=== PATIENT | male | born 1960 | race Caucasian/White ===

== ENCOUNTER 2016-10-17 14:30 | Observation (INO) | payer SELFPAY ==
[~2016-10-17] VITALS: Ht 188 cm; Wt 77.0 kg
--- NOTE | 2016-10-17 14:39 | NUR ---
PATIENT TO ROOM VIA EMS PROVIDER AT BEDSIDE FOR EVALUATION
[2016-10-17] MEDS ORDERED: NOVOLIN 70/30 SC ×2 (14:55→14:56)
[2016-10-17 15:07] LABS: HEMATOCRIT 37.9 % (39.0-50.0); HEMOGLOBIN 13.9 g/dl (14.0-18.0); IMMATURE GRANULOCYTES 0.3 % (0.0-1.0); MEAN CORPUSCULAR HGB CONC 36.7 g/L CALC (32.0-36.0); NEUT# 4.32 thou/uL (1.82-7.42); RED BLOOD COUNT 4.21 mill/uL (4.70-6.10); RED CELL DISTRI WIDTH 11.9 % (11.5-15.5)
[2016-10-17 15:16] LABS: ALKALINE PHOSPHATASE 65 u/l (38-126); ANION GAP 19 (6-22 (CALC)); BILIRUBIN, TOTAL 1.3 mg/dL (0.0-1.4); BUN 16 mg/dL (9-20); BUN/CREATININE RATIO 23 (12-20 (CALC)); CALCIUM 9.3 mg/dL (8.4-10.2); CARBON DIOXIDE 19 mmol/l (22-30); CHLORIDE 103 mmol/l (95-108); CREATININE 0.7 mg/dL (0.7-1.3); GFR > 60 ML/MIN (>=60 (CALC)); GFR FOR AFR.AMER. > 60 ML/MIN (>=60 (CALC)); GLUCOSE 113 mg/dL (75-110); POTASSIUM 3.7 mmol/l (3.5-5.1); SGOT/AST 18 u/l (17-59); SGPT/ALT 37 u/l (21-72); SODIUM 137 mmol/l (137-146); TOTAL PROTEIN 6.8 g/dL (6.3-8.2)
--- NOTE | 2016-10-17 15:17 | NUR ---
PT RESTING ON STRETCHER WATCHING TV. RESP EVEN AND UNLABORED. SKIN WARM AND DRY. VSS. PT DENIES PAIN. STATES "FEELS BETTER THAN I DID". CALL LIGHT WITHIN REACH. S/O AT BEDSIDE.
[2016-10-17 15:28] LABS: MYOGLOBIN 22 ng/mL (0 - 121)
[2016-10-17 15:50] LABS: URINE BLOOD DIPSTICK NEGATIVE (NEGATIVE); URINE CLARITY CLEAR; URINE COLOR YELLOW; URINE GLUCOSE - DIPSTICK >=1000 mg/dL (NEGATIVE); URINE KETONE 15 mg/dL (NEGATIVE); URINE LEUK ESTERASE NEGATIVE (NEGATIVE); URINE NITRITE - DIPSTICK NEGATIVE (Negative); URINE PROTEIN - DIPSTICK TRACE mg/dL (NEG-TRACE); URINE SPECIFIC GRAVITY 1.015
[2016-10-17 15:52] LABS: URINE BILIRUBIN - DIPSTICK NEGATIVE (NEGATIVE)
[2016-10-17 15:53] LABS: BARBITURATES NEGATIVE (NEGATIVE); COCAINE NEGATIVE (NEGATIVE); METHADONE NEGATIVE (NEGATIVE); OXCYCODONE NEGATIVE (NEGATIVE); TETRAHYDROCANNABIONOL NEGATIVE (NEGATIVE); TRICYLIC ANTIDEPRESSANTS NEGATIVE (NEGATIVE)
--- NOTE | 2016-10-17 16:25 | NUR ---
PT RESTING ON STRETCHER. RESP EVEN AND UNLABORED. SKIN WARM AND DRY.PT WATCHING TV. FAMILY AT BEDSIDE. PT ASKING TO EAT HIS OWN PRETZELS. CALL LIGHT WITHIN REACH.
[2016-10-17 16:31] LABS: MAGNESIUM 1.8 mg/dL (1.6-2.3)
--- NOTE | 2016-10-17 17:06 | NUR ---
PT RESTING ON STRETCHER EATING PRETZELS TALKING WITH FAMILY. RESP EVEN AND UNALBORED. SKIN WARM AND DRY. PT DENIES DIZZINESS. IV SITE HEALTHY. CALL LIGHT WITHIN REACH. PT STATES NO NEEDS AT THIS TIME.
--- NOTE | 2016-10-17 17:46 | NUR ---
PT RESTING ON STRETCHER. RESP EVEN AND UNLABORED. SKIN WARM AND DRY. PT A&O X3. FAMILY AT BEDSIDE. PT STATES NO NEEDS AT THIS TIME. NS INFUSING. IV SITE HEALTHY. CALL LIGHT WITHIN REACH.
--- NOTE | 2016-10-17 18:00 | NUR ---
POTASSIUM PHOSPHATE IV IS NOT AVAILABLE AT HOSPITAL. NOTIFIED.
--- NOTE | 2016-10-17 18:30 | NUR ---
POTASSIUM PHOSPHATE PO NOT AVAILABLE IN ANY [facility]. SPOKE WITH MELI PHARMACIST WHO STATES DANDRE MILNER WILL COME TO PHARMACY AND SUPPLY MED TO [facility].
--- NOTE | 2016-10-17 18:54 | NUR ---
REPORT GIVEN TO SASHA MAYER
--- NOTE | 2016-10-17 19:16 | NUR ---
Admission Note Report Given to: SASHA MAYER Transported by: X Wheelchair Stretcher Transported with: Nurse X Transporter X Patent IV [place] [place] Comptroller PT IN STABLE CONDITION. IV SITE HEALTHY. BELONINGS WITH PT
[2016-10-17 19:19] VITALS: BP 101/66
--- NOTE | 2016-10-17 19:20 | NUR ---
PT TRANSFERRED TO FLOOR IN STABLE CONDITION VIA WC ACCOMPANIED BY JOSELYN SRINIVASAN;PT AMBULATED WITH STEADY GAIT TO STANDING SCALE;VS OBTAINED;PT ORIENTED TO ROOM AND CALL LIGHT SYSTEM AND VERBALIZES UNDERSTANDING;ASSESSMENT COMPLETED;EMS IV SITE TO LAC FLUSHED AND PATENT;PT REPORTED LAST BM TO BE ON 10/17;PT DENIES ANY PAIN OR DISCOMFORTS AT THIS TIME;URINAL AT BEDSIDE;PT STATES "I FEEL BETTER SINCE I CAME IN";PT DENIES ANY NEEDS;TELE MONITOR IN PLACE;SAFETY PRECAUTIONS REINFORCED;PT EDUCATED TO CALL FOR ASSISTANCE IF NEEDED;BED IN LOWEST POSITION WITH CALL LIGHT IN REACH;WILL CONTINUE TO MONITOR
--- NOTE | 2016-10-18 00:10 | NUR ---
PT APPEARS TO BE SLEEPING IN SEMI FOWLERS POSITION WITH SPOUSE AT BEDSIDE;NO S/S OF DISTRESS NOTED;RESPIRATIONS EVEN AND UNLABORED ON RA;IV FLUIDS INFUSING WELL AT THIS TIME;URINAL AT BEDSIDE;CALL LIGHT WITHIN REACH;WILL CONTINUE TO MONITOR
[2016-10-18 00:20] VITALS: BP 104/64
[2016-10-18 04:10] VITALS: BP 110/72
--- NOTE | 2016-10-18 05:07 | NUR ---
PT RESTING IN SUPINE POSITION WITH SPOUSE AT BEDSIDE;LAB IN ROOM;PT DENIES ANY PAIN OR DISCOMFORTS;RESPIRATIONS EVEN AND UNLABORED ON RA;IV FLUIDS INFUSING WELL TO LAC;PT EDUCATED TO CALL FOR ASSISTANCE IF NEEDED;CALL LIGHT WITHIN REACH;WILL CONTINUE TO MONITOR
[2016-10-18 07:20] LABS: HEMATOCRIT 37.4 % (39.0-50.0); HEMOGLOBIN 12.9 g/dl (14.0-18.0); MEAN CELL VOLUME 93.5 fL CALC (80.0-100.0); MEAN CORPUSCULAR HGB 32.3 pG CALC (26.0-32.0); MEAN CORPUSCULAR HGB CONC 34.5 g/L CALC (32.0-36.0); RED CELL DISTRI WIDTH 11.9 % (11.5-15.5)
[2016-10-18 07:25] LABS: ALKALINE PHOSPHATASE 54 u/l (38-126); ANION GAP 12 (6-22 (CALC)); BILIRUBIN, TOTAL 0.6 mg/dL (0.0-1.4); BUN 14 mg/dL (9-20); BUN/CREATININE RATIO 23 (12-20 (CALC)); CALCIUM 8.3 mg/dL (8.4-10.2); CARBON DIOXIDE 22 mmol/l (22-30); CHLORIDE 107 mmol/l (95-108); CREATININE 0.6 mg/dL (0.7-1.3); GFR > 60 ML/MIN (>=60 (CALC)); GFR FOR AFR.AMER. > 60 ML/MIN (>=60 (CALC)); GLUCOSE 244 mg/dL (75-110); POTASSIUM 4.2 mmol/l (3.5-5.1); SGOT/AST 23 u/l (17-59); SGPT/ALT 34 u/l (21-72); SODIUM 137 mmol/l (137-146); TOTAL PROTEIN 5.6 g/dL (6.3-8.2)
[2016-10-18 11:10] VITALS: BP 118/56
[2016-10-18] MEDS ORDERED: ASPIRIN ADULT L81 M2 PO (12:08)
--- NOTE | 2016-10-18 12:48 | NUR ---
Discharge instructions given. Patient verbalizes understanding of same. Discharged in stable condition via Wheelchair to Home with family. All belongings sent with pt.
== END 2016-10-18 12:55 | disposition home or self-care (01) | DRG 641 ==
LOC: ENPENDDIS → ED 14:30 → ED-I 17:47 → ED 17:50 → MS2 17:51
PROVIDERS: Emergency Medicine; ADMIT Internal Medicine; ATTEND Internal Medicine
DX: E86.0 Dehydration (principal); E86.1 Hypovolemia; E11.649 Type 2 diabetes mellitus with hypoglycemia without coma; I95.9 Hypotension, unspecified; E44.1 Mild protein-calorie malnutrition; E83.39 Other disorders of phosphorus metabolism; Z79.4 Long term (current) use of insulin; Z68.21 Body mass index [BMI] 21.0-21.9, adult
CPT/HCPCS: G0378

== ENCOUNTER 2019-12-28 10:39 | Emergency (ER) | payer SELFPAY ==
[~2019-12-28] VITALS: Ht 188 cm; Wt 90.9 kg
[~2019-12-28 10:39] MED LIST: ASPIRIN ADULT L81 M2 PO; NOVOLIN 70/30 SC
[2019-12-28 11:39] LABS: HEMATOCRIT 44.8 % (39.0-50.0); HEMOGLOBIN 14.8 g/dl (14.0-18.0); IMMATURE GRANULOCYTES 0.3 % (0.0-5.0); MEAN CELL VOLUME 94.7 fL CALC (80.0-100.0); MEAN CORPUSCULAR HGB 31.3 pG CALC (26.0-32.0); NEUT# 7.22 thou/uL (1.82-7.42); RED BLOOD COUNT 4.73 mill/uL (4.70-6.10)
[2019-12-28 11:52] LABS: ANION GAP 19 (6-22 (CALC)); BUN 16 mg/dL (9-20); BUN/CREATININE RATIO 25 (12-20 (CALC)); CARBON DIOXIDE 18 mmol/l (22-30); CHLORIDE 101 mmol/l (95-108); CREATININE 0.6 mg/dL (0.7-1.3); GFR > 60 ML/MIN (>=60 (CALC)); GFR FOR AFR.AMER. > 60 ML/MIN (>=60 (CALC)); POTASSIUM 4.8 mmol/l (3.5-5.1); SODIUM 133 mmol/l (137-146)
[2019-12-28 11:53] LABS: ALKALINE PHOSPHATASE 82 u/l (38-126); BILIRUBIN, TOTAL 1.8 mg/dL (0.0-1.4); SGOT/AST 41 u/l (17-59)
[2019-12-28 11:58] LABS: PROTHROMBIN TIME 9.9 SECONDS (9.0-12.5)
[2019-12-28 12:37] LABS: URINE BILIRUBIN - DIPSTICK NEGATIVE (NEGATIVE); URINE BLOOD DIPSTICK NEGATIVE (NEGATIVE); URINE COLOR YELLOW; URINE GLUCOSE - DIPSTICK >=1000 mg/dL (NEGATIVE); URINE KETONE >=80 mg/dL (NEGATIVE); URINE LEUK ESTERASE NEGATIVE (NEGATIVE); URINE NITRITE - DIPSTICK NEGATIVE (Negative); URINE PROTEIN - DIPSTICK NEGATIVE (NEG-TRACE); URINE SPECIFIC GRAVITY 1.015; URINE UROBILINOGEN - DIPSTICK 0.2 E.U./dL (0.2)
[2019-12-28] MEDS ORDERED: MECLIZINE25 MG PO (13:07)
[2019-12-28] MEDS ORDERED: ZOFRAN4 MG/TAB PO (13:07)
[2019-12-28 13:20] VITALS: BP 139/83
== END 2019-12-28 13:26 | disposition home or self-care (01) | DRG 149 ==
LOC: ED 10:39
PROVIDERS: Student in an Organized Health Care Education/Training Program
DX: R42 Dizziness and giddiness (principal); E11.9 Type 2 diabetes mellitus without complications; F17.200 Nicotine dependence, unspecified, uncomplicated; Z79.4 Long term (current) use of insulin